=== PATIENT | female | born 1950 | race Caucasian/White ===

== ENCOUNTER 2024-11-18 18:46 | Emergency (ER) | payer MEDICARE, OTHER ==
[2024-11-18] MEDS ORDERED: Ketorolac 30 MG/ML SDV IM ONE (19:56)
[2024-11-18] MEDS: Iopamidol 612 MG/ML 100 ML Bottle IV PRN (20:31)
[2024-11-18] MEDS: Sodium Chloride 0.9% 80 ML IV SCH (20:31)
[2024-11-18] MEDS: Ketorolac 30 MG/ML SDV IVPUSH ONE (20:41)
== END 2024-11-18 22:12 | disposition home or self-care (01) ==
LOC: JP.ED 18:46
DX: S20.212A Contusion of left front wall of thorax, initial encounter (principal); E78.00 Pure hypercholesterolemia, unspecified; Z88.0 Allergy status to penicillin; Z79.899 Other long term (current) drug therapy; Z86.16 Personal history of COVID-19; Z87.891 Personal history of nicotine dependence; V18.0XXA Pedal cycle driver injured in noncollision transport accident in nontraffic accident, initial encounter; Y93.55 Activity, bike riding
CPT/HCPCS: 71260; 73080; 73110; 96374; 99284; J1885; Q9967